=== PATIENT | female | born 1940 | race African-American/Black ===

== ENCOUNTER 2019-08-10 15:31 | Inpatient (IN) ==
--- NOTE | 2019-08-10 16:18 | EKG Report ---
Test Performed on : 08/10/2019 3:49:37 PM Test Reason : WEAKNESS Blood Pressure : / mmHG Vent. Rate : 053 BPM Atrial Rate : 053 BPM P-R Int : 192 ms QRS Dur : 074 ms QT Int : 414 ms P-R-T Axes : 059 -63 049 degrees QTc Int : 388 ms Sinus bradycardia. Left anterior fascicular block Anterior infarct (cited on or before 17-DEC-2010) Abnormal ECG When compared with ECG of 17-DEC-2010 15:09, Nonspecific T wave abnormality no longer evident in Inferior leads Unconfirmed Result
[2019-08-10 16:21] LABS: BASO# 0.01 X1000 (0.0-0.2); BASO% 0.2 % (0.0-0.8); EOS# 0.11 X1000 (0.0-0.7); EOS% 2.1 % (0.0-10.0); HEMATOCRIT 30.6 % (37.0-47.0); MCH 29.2 PG (27-31); MCHC 32.7 g/dL (33-37); MCV 89.5 FL (81-99); MONO# 0.25 X1000 (0.11-0.59); MONO% 4.8 % (1.7-9.3); MPV 10.1 FL (7.4-10.4); NEUT# 2.12 X1000 (1.4-6.5); NEUT% 40.9 % (42.2-75.2); PLT 213 X1000 (130-400); RBC 3.42 XMIL (4.2-5.4); RDW 12.4 % (11.5-14.5); WBC 5.19 X1000 (4.8-10.8)
[2019-08-10 16:49] LABS: ALB/GLOB RATIO 1.5; ALBUMIN 4.2 g/dL (3.5-5.0); CALCIUM 9.3 mg/dL (8.8-10.2); CREATININE 3.4 mg/dL (0.5-0.9); POTASSIUM 3.6 mmol/L (3.5-5.1); TOTAL BILIRUBIN 0.34 mg/dL (0.20-1.00)
--- NOTE | 2019-08-10 16:59 | Diag Imaging Result Doc PS360 ---
CHEST-PORTABLE - 08/10/2019 INDICATION: Weakness COMPARISON: 12/17/2010 FINDINGS: Stable mild cardiomegaly. Pulmonary vascularity is normal. No infiltrates or edema. No pneumothorax or pleural effusion. IMPRESSION: Mild cardiomegaly. Electronically signed by Jose Hannon 08/10/2019 4:57 PM
--- NOTE | 2019-08-10 17:02 | Diag Imaging Result Doc PS360 ---
CT HEAD W/O CONTRAST - 08/10/2019 INDICATION: Head injury COMPARISON: 12/17/2010 FINDINGS: Stable area of encephalomalacia at the anterior left frontal lobe. Stable area of old encephalomalacia at the posterior right occipital lobe. There is some new indeterminate subcortical cerebral white matter hypodensity bilaterally. This is mainly in the parietal lobes, left greater than right. No mass effect. No intracranial hemorrhage. Stable prosthetic device around the right eye. The skull is intact. The sinuses are clear. IMPRESSION: Worsening cerebral white matter hypodensity superiorly, with some asymmetry. The reason is uncertain. Recommend a follow-up brain MRI without and with intravenous contrast. No intracranial hemorrhage. This exam was performed using automated exposure control, adjustment of mA or kV according to patient size, and/or use of iterative reconstruction technique Electronically signed by Jose Hannon 08/10/2019 5:00 PM
[2019-08-10 17:06] LABS: ALLEN TEST YES; BE -2.4 mmoll (-3.0-3.0); BLOOD TYPE ARTERIAL; METHB 1.2 % (0.0-1.5); O2(CT) 13.3 mL/dL (15.0-23.0); O2HB 95.5 % (95.0-99.0); PCO2(98.6) 38 mmHg (35-45); PO2(98.6) 81 mmHg (60-100); SAMPLE BLOOD; SAO2 98.3 % (95.0-100.0); THB 9.8 g/dL (11.5-17.4); pH(98.6) 7.38 (7.35-7.45)
[2019-08-10 17:07] LABS: MODALITY ROOM AIR
[2019-08-10 17:58] LABS: URINE SOURCE CLEAN CATCH
[2019-08-10 18:10] LABS: BILIRUBIN URINE NEGATIVE (NEGATIVE); BLOOD URINE NEGATIVE (NEGATIVE); COLOR YELLOW; GLUCOSE URINE NEGATIVE (NEGATIVE); KETONE URINE NEGATIVE (NEGATIVE); LEUKOCYTES URINE NEGATIVE (NEGATIVE); NITRITE URINE NEGATIVE (NEGATIVE); PH URINE 5.5; PROTEIN URINE TRACE mg/dL (NEGATIVE); SP GRAVITY URINE 1.013; TURBIDITY URINE CLEAR (CLEAR); UROBILINOGEN URINE NORMAL (NORMAL)
[2019-08-10 18:13] LABS: UR EPITHELIAL CELLS <10 /HPF (<10); URINE BACTERIA NEGATIVE /HPF; URINE RBC <10 /HPF (<10); URINE WBC <10 /HPF (<10)
[2019-08-10 18:13] LABS: INR 1.05; PROTIME 13.8 Seconds (11.0-16.0)
[2019-08-10 18:14] LABS: UR AMPHETAMINES QUAL NONE DETECTED (NONE DETECT); UR BARBITUATES QUAL NONE DETECTED (NONE DETECT); UR BENZODIAZEPIN QUAL NONE DETECTED (NONE DETECT); UR CANNABINOIDS QUAL NONE DETECTED (NONE DETECT); UR COCAINE QUAL NONE DETECTED (NONE DETECT); UR METHADONE QUAL NONE DETECTED (NONE DETECT); UR OPIATES QUAL NONE DETECTED (NONE DETECT); UR OXYCODONE QUAL NONE DETECTED (NONE DETECT); UR PCP QUAL NONE DETECTED (NONE DETECT)
[2019-08-10 18:14] LABS: PTT 27.2 Seconds (22.3-41.8)
--- NOTE | 2019-08-10 18:44 | PROVIDER DOCUMENTATION ---
This chart was entered by Marlena Sandoval Scribe, acting as scribe for Jim Goddard MD. HPI-General Adult - General Chief Complaint: Weakness Stated Complaint: WEAKNESS Time Seen by Provider: 08/10/19 16:05 Source: patient Allergies/Adverse Reactions: Patient Allergies Allergy/AdvReac Type Severity Reaction Status Date / Time No Known Allergies Allergy Verified 08/10/19 17:38 Home Medications: Home Medication List Medication Instructions Recorded Confirmed Last Taken Type Bimatoprost [Lumigan] 1 drop BOTH EYES DAILY 03/26/17 08/10/19 08/10/19 History Bisoprolol/Hydrochlorothiazide 1 each PO DAILY 03/26/17 08/10/19 Unknown History [Ziac 5-6.25 mg Tablet] Iron Fum & Ps Cmp/Vit C & B 1 each PO DAILY 03/26/17 08/10/19 Unknown History [Integra Capsule] Levetiracetam [Keppra] 500 mg PO BID 03/26/17 08/10/19 08/10/19 History SIMVAstatin [Zocor] 20 mg PO QHS 03/26/17 08/10/19 Unknown History - History of Present Illness -Gen Adult Nature of Presenting Problems: Patient is a 79 y/o female presenting to the ED today c/o weakness. Patient reports onset of symptoms over the last week. Patient reports she has also had intermittent left sided low back pain but it has resolved at this time. Patient reports she is scheduled to see nephrology tomorrow. Patient's family states that she has not been taking her antiepileptic medications as prescribed and they noticed some behavioral and speech changes when they realized she was no longer compliant. Patient reports she has had significant weight loss over the last year with no intention. Patient denies fever, chest pain, abdominal pain, vision changes, and headache. Patient reports she has cataracts as well as decr eased pupil function in her right eye. Patient reports history of bradycardia and CVA. Denies all other signs/symptoms. Location of Pain/Injury: reports: back (low back) Pain Radiation: reports: no radiation Onset/Duration: reports: 1 week ago Timing: reports: intermittent Associated Symptoms: reports: weakness Similar Symptoms Previously?: No Recently seen or treated by another doctor?: No Review of Systems - Adult - REVIEW OF SYSTEMS - ADULT Constitutional: reports: weight loss. denies: chills, fever Eyes: reports: no symptoms reported Ears, Nose, Mouth & Throat: reports: no symptoms reported Cardiovascular: reports: other (bradycardia). denies: chest pain Respiratory: denies: cough, shortness of breath Gastrointestinal: denies: abdominal pain Genitourinary: denies: dysuria Musculoskeletal: reports: no symptoms reported Integumentary: reports: no symptoms reported Neurological: reports: other (generalized weakness) Psychiatric: reports: no symptoms reported Endocrine: reports: no symptoms reported Hematologic/Lymphatic: reports: no symptoms reported Allergic/Immunologic: reports: no symptoms reported Past History - Adult - PAST MEDICAL HISTORY-ADULT Review of Records: reports: Old Records Reviewed, Nursing Assessment Review, Medications Reviewed, Social history reviewed & non-contributory. Major Childhood Illnesses: reports: denies history Cardiovascular: reports: CO, other (bradycardia) Respiratory: reports: denies history Gastrointestinal: reports: denies history Obstetrical/Gynecological: reports: denies history Genitourinary: reports: denies history Musculoskeletal: reports: denies history Neurological: reports: CVA Endocrine/Immune: reports: denies history Other Conditions: reports: cataract/glaucoma Physical Exam-General - PHYSICAL EXAM-ADULT Initial Vital Signs Reviewed: Yes - CONSTITUTIONAL General Appearance: alert, no apparent distress - EYES Eyes: other (no pupil response on right- patient reports baseline, cataracts noted). negative: conjuctival exudate, sclera injected, scleral icterus, subconjunctival hemorrhage - HEAD, EARS, NOSE, MOUTH & THROAT HENMT: moist mucous membranes, normal ENT inspection, pharynx normal - NECK Neck: supple - RESPIRATORY Respiratory: lungs clear, normal breath sounds, no respiratory distress, no accessory muscle use - CARDIOVASCULAR Cardiovascular: no edema, no gallop, no murmur, bradycardia - GASTROINTESTINAL (ABDOMEN) Abdominal Exam: non tender, soft - MUSCULOSKELETAL Extremity: normal range of motion, normal inspection, other (strength 5/5 in the right upper extremity and 4/5 in the right upper extremity, LE 4/5 in the LLE vs 5/5 in the RLE.) - SKIN Integumentary: normal color, warm/dry - NEUROLOGIC Neurologic: grossly normal - PSYCHIATRIC Psych/Mental Status: normal mood/affect, normal thought content, normal thought process Progress - PLAN OF CARE/RESULTS Progress/Plan/Lab Results: Vital Signs - 8 hr 08/10/19 15:38 Temperature 97.7 F Pulse Rate 54 L Respiratory Rate 18 Blood Pressure 136/81 O2 Sat by Pulse Oximetry 99 Laboratory Results - last 24 hr 08/10/19 16:01 POC Glucose 82 Orders Category Date Time Status CBC WITH ELECTRONIC DIFF [HEME] Stat Lab 08/10/19 16:06 Ordered COMPREHENSIVE METABOLIC PANEL [CHEM] Stat Lab 08/10/19 16:06 Ordered Generalized Adult Illness >60 Stat Oth 08/10/19 15:44 Ordered EKG [EKG] Stat Ther 08/10/19 15:44 Ordered Result Diagrams: 08/10/19 16:01 08/10/19 16:01 - REASSESSMENT Reassessment #1 Status: other (Given reported progressive weakness and new Head CT findings recomending MRI will plan for admission inpt. Discussed with the hospitalist team who have accepted the patient.) - EKG 1 Time of EKG reading by physician:: 15:49 EKG Read and Signed by:: Jim Goddard EKG Interpretation (*Must complete 3 of following elements*): Abnormal Rate: 53 Rhythm: Sinus bradycardia with 1st degree AV block [place]: left Comments: No STEMI Departure - Departure Date of Disposition Decision: 08/10/19 Time of Disposition Decision: 18:28 DIAGNOSIS: Weakness, Bradycardia, Abnormal CT of the head Disposition: ADMITTED INPATIENT 09 Certified Medical Emergency: Emergent Condition: Fair Referrals and Follow-Ups: Lawrence Lizarraga MD [Primary Care Provider] - - Critical Care Note This patient required my direct & personal management of CC.: No Attestation - Physician/ ANNIE Attestation Patient care was provided by Advanced Practice Provider:: No The physician spent face to face time with patient:: Yes Advanced Practice Provider documentation review:: Supervising physician onsite and consulted in the evaluation and care of this patient. The physician did have a face to face encounter with the patient. This chart was documented by the indicated scribe, (Marlena Sandoval Scribe) and accurately reflects the services I performed and decisions made by Nitza soares Joshua T., MD, as attested by the provider's signature.
--- NOTE | 2019-08-10 20:38 | Diag Imaging Result Doc PS360 ---
US RENAL 2 (RETROPER) COMPLETE - 08/10/2019 INDICATION: Elevated CR TECHNIQUE: COMPARISON: CT abdomen pelvis 03/08/2017 FINDINGS: There are several bilateral renal cysts. These measure up to 3 cm on the right and 6 cm on the left. The right kidney measures 10.4 x 7.1 x 4. Centimeter / The left kidney measures 14.4 x 5.6 x 6.2 cm. The urinary bladder is collapsed. IMPRESSION: Several large bilateral renal cysts. No evidence of hydronephrosis. Electronically signed by Jose Hannon 08/10/2019 8:36 PM
--- NOTE | 2019-08-10 22:32 | HISTORY AND PHYSICAL ---
PRIMARY CARE PHYSICIAN: Dr. Lawrence Lizarraga. CHIEF COMPLAINT: Weakness. HISTORY OF PRESENTING ILLNESS: A 79-year-old elderly female with a history of hypertension, gout, CVA and seizures who had presented to the emergency department with several days history of having weakness. She states that she just did not feel well. Patient is a poor historian. Most of the history is obtained from her family members. However at time my examination, she had denied any headache, fever, chills, chest pain, shortness of breath but claims that she is just weak. The patient apparently had a CT scan in the ED which was also abnormal with recommendation for MRI. However, due to her renal failure we will probably need to hold off on it for now. PAST MEDICAL HISTORY: Includes hypertension, gout, CVA, seizure disorder. PAST SURGICAL HISTORY: Right eye surgery, cataract surgery bilaterally, hysterectomy. ALLERGIES: No known drug allergies. CURRENT MEDICATIONS: She does not recall and nursing staff will reconcile. SOCIAL HISTORY: No history of smoking, alcohol or illicit drug use. FAMILY HISTORY: Positive for coronary disease father. REVIEW OF SYSTEMS: Fourteen point review of system as listed in HPI. Other systems negative. PHYSICAL EXAMINATION: GENERAL: Cooperative, friendly female. She is resting comfortably now. VITAL SIGNS: Temperature 97.7 degrees, pulse 54, respiration 18, blood pressure 136/81. HEENT: Atraumatic, normocephalic. PERRLA. NECK: No masses. CHEST: Clear to auscultation. CARDIOVASCULAR: Regular rate and rhythm. ABDOMEN: Soft. Positive bowel sounds. EXTREMITIES: No edema. NEUROLOGIC: She is awake, alert, oriented x2. : No bladder distention. SKIN: Warm. LABORATORIES AND STUDIES: WBC 5.19, hemoglobin 10.1, hematocrit 30.6, platelets 213,000. Sodium 140, potassium 3.6, chloride 103, CO2 is 21, BUN is 60, creatinine 3.4, glucose is 89. UA, leukocytes are negative, nitrite is negative. CT of the head shows worsening cerebral white matter hypodensities with recommendations for brain MRI. ASSESSMENT: This is a 79-year-old female with a history of hypertension, gout, cerebrovascular accident and seizure disorder who had presented to the emergency department with complaint of weakness. She was evaluated in the emergency department. She had imaging done which did show abnormal CAT scan. Due to her presenting symptoms, she will require admission for further management. 1. Generalized weakness. 2. Abnormal CAT scan of the head. 3. Seizure disorder. 4. Hypertension. 5. Acute on chronic kidney disease. PLAN: 1. We will admit patient to medical floor with telemetry. 2. We will consult Neurology for further evaluation of weakness and abnormal CT of the head. 3. We will put patient on seizure precautions. Start her antiepileptic agents. 4. We will continue to monitor renal function closely. 5. Monitor blood pressure. Resume antihypertensive agent. 6. We will put patient on DVT prophylaxis with SCDs. 7. We will continue to follow and reassess. Make further recommendation based on patient's clinical course. cc: Efra Mackenzie MD
[2019-08-10] MEDS ORDERED: ZOFRAN IV PRN (22:43)
[2019-08-11 08:39] LABS: BASO# 0.01 X1000 (0.0-0.2); BASO% 0.2 % (0.0-0.8); EOS# 0.12 X1000 (0.0-0.7); EOS% 2.6 % (0.0-10.0); HEMATOCRIT 29.1 % (37.0-47.0); HEMOGLOBIN 9.9 g/dL (12.0-16.0); LYMPH# 2.43 X1000 (1.2-3.4); LYMPH% 53.1 % (20.5-51.1); MCH 30.3 PG (27-31); MONO# 0.27 X1000 (0.11-0.59); MONO% 5.9 % (1.7-9.3); MPV 10.1 FL (7.4-10.4); NEUT# 1.75 X1000 (1.4-6.5); NEUT% 38.2 % (42.2-75.2); PLT 204 X1000 (130-400); RBC 3.27 XMIL (4.2-5.4); RDW 12.3 % (11.5-14.5); WBC 4.58 X1000 (4.8-10.8)
[2019-08-11 09:14] LABS: CALCIUM 9.3 mg/dL (8.8-10.2); CREATININE 2.7 mg/dL (0.5-0.9); POTASSIUM 3.7 mmol/L (3.5-5.1)
[2019-08-11] MEDS: FISH OIL CONCENTRATE PO SCH (10:02)
[2019-08-11] MEDS: ZYLOPRIM PO SCH (10:02)
[2019-08-11] MEDS: KEPPRA PO SCH ×2 (10:02→20:44)
[2019-08-11] MEDS: ASPIRIN EC PO SCH (10:02)
[2019-08-11] MEDS: TIMOPTIC 0.25% OPH SOLUTION BOTH EYES SCH ×2 (10:03→20:44)
[2019-08-11] MEDS: PATIENT'S OWN MED PO SCH (10:11)
[2019-08-11] MEDS: LUMIGAN 0.01% OPH SOLUTION BOTH EYES SCH ×2 (10:12→20:45)
[2019-08-11] MEDS: NS 1,000 ML IV SCH ×2 (14:10)
--- NOTE | 2019-08-11 14:20 | PROGRESS NOTE ---
DATE: 08/11/2019 SUBJECTIVE: Patient admitted on 08/10/2019, admitted yesterday. Her doctor is Dr. Lawrence Lizarraga. She has also been seen by Dr. Cardona. This is a 79-year-old female with history of hypertension, gout, CVA, and history of seizures, who presented to the emergency department with several-day history of having weakness, and did not feel well. Apparently, she was having trouble slow in speech and there seemed to be some questionable confusion. Most of the history was obtained from family members. At the time I examined her in the emergency room, the patient had a CT scan in the emergency room without contrast, and was unremarkable. I think they are planning on an MRI, which I think they have obtained already. PAST MEDICAL HISTORY: Hypertension, gout, CVA and seizure disorder. She says she feels better. Her daughter was at the bedside. Her speech was fluent. She is oriented x3. She remains afebrile. Temperature 98 degrees, pulse 42, and respirations 19. A note that the pulse varied from 42 to 90, blood pressure 161 over 59. Pupils are equal. CVP less than 6 cm. Lungs are clear in all lung mckay. Cardiovascular exam regular rhythm and rate without murmur or S3. Abdomen is soft. Skin is warm and dry. LABORATORY DATA: Reviewed from yesterday, white count was 4580, hematocrit 29, and platelet count is 204,000. Sodium 141, potassium 3.7, chloride 104, BUN 52, and creatinine 2.7 which has come down from 3.[address] of the head without contrast with worsening cerebral white matter hypodensity superiorly and some asymmetry. Reason is uncertain, so I believe MRI is planned to see where she had a myocardial perfusion scan back in 2016. It was it was normal and negative. ASSESSMENT AND PLAN: 1. Generalized weakness. I think it is multifactorial. 2. I think a CT scan was nonspecific. I think they are wanting to get an MRI. 3. History of seizure disorder. 4. Hypertension. 5. Chronic kidney disease with acute kidney injury on top of chronic kidney disease. This may have just been a prerenal. 6. Reviewing her orders: She is getting Zocor 20 mg a day, allopurinol 300 mg every morning, aspirin 81 mg a day, Keppra 500 mg p.o. b.i.d. She is getting normal saline at 80 mL an hour. Her electrolytes are pretty unremarkable so this may have been just symptomatic azotemia, and seems to be responding to fluids. Continue normal saline at present rate. 7. History of seizures. Aware. Continue Keppra. 8. History of gout. She is on allopurinol. 9. History of hypercholesterolemia. She is on Zocor. 10. Physical Therapy has been consulted. cc: Kiet Navas MD
[2019-08-11] MEDS: ZOCOR PO SCH (20:44)
--- NOTE | 2019-08-12 07:42 | CONSULTATION ---
DATE OF CONSULTATION: 08/11/2019 REASON FOR CONSULT: Altered mental status and weakness. HISTORY OF PRESENT ILLNESS: This is a 79-year-old, right-handed, black female with a history of seizure disorder, stroke, and hypertension who was brought into the emergency department with about 1 week of generalized weakness and some confusion. History is from the patient and her daughter. The patient just did not feel quite like herself over the last week. She did not feel well. Family felt there was just a gradual slow onset of confusion and generalized weakness. There was not focal feature. There was not witnessed seizure or loss of consciousness. No headache, fever, chills, chest pain, shortness of breath. No recent illnesses. The patient reports taking her medications as prescribed. Her daughter says that she needs to use a pill box but that she does not. The patient does not receive help with her medications. Daughter suspects that she may not always take her seizure medication, though she is not sure. Head CT showed worsening white matter hypodensity superiorly, mainly parietal lobes, left greater than right. PAST MEDICAL HISTORY: Hypertension, remote stroke, seizure disorder, gout, right eye surgery, cataracts. FAMILY HISTORY: Positive for coronary disease. No seizures. SOCIAL HISTORY: No smoking, tobacco, or alcohol. She had been driving until very recently. ALLERGIES: No known drug allergies listed. CURRENT MEDICATIONS: Reviewed in the chart, include aspirin 81 mg daily and Keppra 500 mg b.i.d. REVIEW OF SYSTEMS: Balance of 12 conducted and is otherwise negative except that detailed in the HPI. She apparently had reported some weight loss. PHYSICAL EXAMINATION: Vital Signs: She has been afebrile, blood pressure 159/62, pulse anywhere from the 30s to 90s, respirations 19, 100% on room air. Ms. Esquivel is standing in the bathroom with her daughter when I enter the room. She walks slowly but unassisted in the bedroom and sits down on the bed. She is awake, alert, and reasonably oriented. At times, she makes comments that it seems the daughter felt were confused statements. She followed simple and complex commands for me but she says that she follows simple commands consistently. Left and right digit distinction preserved. General dysarthria. No language disturbance on brief bedside testing. Pupils are equal and round, and subtly reactive to bright light. Gaze conjugate. Ocular movements are full. She can hear. Visual mckay appear intact to direct confrontational testing. Face asymmetric with equal activation. Facial sensation reported intact. Tongue is midline. Palate elevates symmetrically. Shoulder shrug is full. Power testing in the limbs was difficult. I did not see obvious definite focal finding, however. She reported symmetric sensation in the limbs bilaterally. Reflexes were absent at the ankles, 1+ at the biceps bilaterally. No clonus. Plantar response was downgoing. [id number] was intact but slowed bilaterally. Rapid alternating movements appeared slowed bilaterally. DIAGNOSTICS: Head CT: Worsening cerebral white matter hypodensity superiorly, mainly in the parietal lobes, left greater than right and without mass-effect. Recommended a followup study with an MRI. There was not intracranial hemorrhage. There was a stable area of encephalomalacia in the anterior left frontal lobe and also in the posterior right occipital lobe. LABS: Reviewed in the chart. BUN 60, now 52; creatinine 3.4, now 2.7. These values had been elevated in 2017 as well. The blood glucose was 50 overnight, in the 80s on admission. Urinalysis and toxicology negative. ASSESSMENT AND PLAN: A 79-year-old female with a history of seizures, stroke, and hypertension admitted with gradual onset of altered mental status and generalized weakness. Neurologic exam today was nonfocal. Head CT, however, revealed new indeterminate subcortical cerebral white matter hypodensity as detailed above. This is of uncertain etiology and is new, at least since the comparison which was performed in 2010. Etiology of her symptoms is uncertain, but they believe that there has been improvement compared to admission, which is reassuring. It may be on the basis of her renal function. It may be multifactorial. Seizures or stroke are also a possibility. A Keppra level has been sent. I will order a routine EEG. I will also order an MRI of the brain, noncontrast given her kidney disease, and see if we can get a better look at the area of concern on CT. Please limit sedating medications as able. Thank you for the consultation. cc: MD MAXX Hastings
--- NOTE | 2019-08-12 09:33 | Diag Imaging Result Doc PS360 ---
EXAM: MRI BRAIN W/O CONTRAST 08/11/2019 HISTORY: abnormal CT TECHNIQUE: T1 sagittal and axial, axial T2, FLAIR, DWI and coronal gradient echo. COMMENT: There are some apparent encephalomalacic changes in the inferior right cerebellar hemisphere as well as in the right occipital lobe, the left posterior temporal parietal lobe and in the frontoparietal region on the left. There is increased T1 weighted signal intensity in the cortex in the posterior left hemisphere consistent with laminar necrosis. In addition there is increased T2-weighted signal intensity in the periventricular white matter bilaterally and particularly in the subcortical white matter of the anterior and posterior left hemisphere and in a patchy distribution in the subcortical white matter of the right hemisphere. There is some slightly increased signal intensity on the diffusion-weighted images in the posterior left hemisphere, which may be indicative of T2 shine through rather than restricted diffusion, and there is there is a small nodular focus of decreased signal intensity on the gradient echo images in the posterior left parietal subcortical white matter. There is decreased signal intensity on the [place] sequence indicating petechial hemorrhage in the posterior left cortex. There are some less dramatic low signal intensity areas on the [place] series in the frontoparietal region on the left. IMPRESSION: Extensive chronic ischemic changes with encephalomalacia in the anterior left hemisphere and occipital lobe on the right. Findings in the temporoparietal region posteriorly in the left hemisphere are probably related to a relatively subacute infarction with laminar necrosis and petechial hemorrhage. Electronically signed by Simeon Delacruz 08/12/2019 9:31 AM
[2019-08-12] MEDS: ASPIRIN EC PO SCH (10:30)
[2019-08-12] MEDS: KEPPRA PO SCH ×2 (10:30→22:47)
[2019-08-12] MEDS: FISH OIL CONCENTRATE PO SCH (10:30)
[2019-08-12] MEDS: ZYLOPRIM PO SCH (10:30)
[2019-08-12] MEDS: TIMOPTIC 0.25% OPH SOLUTION BOTH EYES SCH ×2 (10:31→22:47)
[2019-08-12] MEDS: PATIENT'S OWN MED PO SCH (10:31)
--- NOTE | 2019-08-12 13:23 | PROGRESS NOTE ---
DATE: 08/12/2019 SUBJECTIVE: Ms. Esquivel has baseline dementia and presented with confusion. There is remote history of seizure. There was not clear history of recent seizure. MRI completed recently shows evidence of old and more recent infarction, but nothing definitely acute. She did not have any definite focal neurologic feature with her current presentation. Dr. Song saw her for Neurology evaluation yesterday. OBJECTIVE: On exam today, she is awake, alert, attentive. Family reports she is much brighter today and may be close to her baseline cognitively and mentally. EEG today shows mostly generalized slowing indicative of global encephalopathy and consistent with her baseline cognitive impairment syndrome. There is minimal increased left frontal slowing which may correlate with recent infarction. There is no evidence of seizure. I do not have any new suggestions from Neurology standpoint today. If she has fluctuating level of consciousness or questionable other question of seizure, we might repeat the EEG. Thanks for asking us to see Ms. Esquivel. cc: MD MAXX Myers III
--- NOTE | 2019-08-12 15:44 | PROGRESS NOTE ---
DATE: 08/12/2019 SUBJECTIVE: Ms. Esquivel slept a little bit toward the end of the night. She seems to be less restless. She is still very anxious. OBJECTIVE: Vital Signs: Temperature 98.1 degrees, pulse 44, respirations 16, blood pressure 170/72. HEENT: Pupils are equal and round. Lungs: Clear in all lung mckay. Cardiovascular: Regular rhythm and rate without murmur or S3. Input and Output: Urine output is 1400 mL. LABORATORY DATA: From this morning, sodium 141, potassium 3.7, chloride 104, BUN 52, creatinine 2.7. ASSESSMENT: 1. EEG shows mostly generalized slowing indicating global encephalopathy consistent with baseline cognitive impairment syndrome. Minimal increase left frontal slowing which may correlate with recent infarction. She had presented with confusion, remote history of seizure. It is not clear whether she has a recent history of seizure. MRI shows completed recently showed evidence of old more recent infarction, but nothing definitely acute. She did not have any definite focal neurologic features on presentation. 2. Hypertension. Blood pressure appears fairly well controlled. 3. Generalized weakness. 4. She has some underlying dementia and does have a good amount of anxiety. PLAN: She is on Zocor 20 mg a day, allopurinol 300 mg q.a.m., aspirin 81 mg a day, Keppra 500 mg b.i.d., and she does appear more alert and awake and will continue the physical therapy. I think she would like to go home with home health so we will continue that and I do not see any change in her medications at this time. cc: Kiet Navas MD
--- NOTE | 2019-08-12 19:33 | EEG REPORT ---
DATE: 08/11/2019 COMMENT: This is a digitally recorded EEG on a 79-year-old patient with baseline cognitive impairment, recent increased confusion, reported remote history of seizure. FINDINGS: During waking, polymorphic and rhythmic theta at low to medium amplitude are present symmetrically across the hemispheres. There is occasional slowing into the delta range at higher amplitude in the left frontal region than on the right. Posterior dominant rhythm was not identified. There is some muscle contraction over the right hemisphere more than the left, which did not hinder interpretation. Photic stimulation did not significantly alter the record. Drowsing occurred briefly with appearance of more generalized slowing. Stage II sleep was not recorded. No definite epileptiform discharge was identified. INTERPRETATION: Abnormal EEG because of mostly generalized slowing. At times, there is slightly more prominent slowing in the left hemisphere anteriorly. CORRELATION: This is indicative of mostly diffuse encephalopathy and is nonspecific. The asymmetry is consistent with focal disturbance of electrocortical activity in the left hemisphere and may correlate with MRI findings of infarction in that area. The absence of epileptiform discharges does not exclude a clinical diagnosis of seizure, but there is nothing on this record to indicate recent seizure. cc: MD Alexa Myers III, MD [facility]EREugenie
[2019-08-12] MEDS: ZOCOR PO SCH (22:46)
[2019-08-12] MEDS: LUMIGAN 0.01% OPH SOLUTION BOTH EYES SCH (22:47)
--- NOTE | 2019-08-13 09:24 | PROGRESS NOTE ---
DATE: 08/13/2019 SUBJECTIVE: Ms. Esquivel said she is feeling much better, wanted to eat some breakfast, and had a good night, and she is stronger, and would like to go home today. She would like to get home health to help her. OBJECTIVE: Vital Signs: Temp 98.3 degrees, pulse 49, respirations 19, blood pressure 130/71. HEENT: Pupils are equal and round. Lungs: Clear in all lung mckay. Cardiovascular: Regular rhythm and rate without murmur or S3. Abdomen: Soft. Skin: Warm and dry. Urine output is 950 mL. ASSESSMENT AND PLAN: 1. Electroencephalogram was unremarkable. No sign of seizures while she has been here in the hospital. She is feels stronger. No new focal changes in her exam. She would like to go home with home health. 2. Hypertension. Blood pressure looks good. 3. History of generalized weakness and deconditioning. That is improving. 4. Some underlying dementia, which seems to be mild, so will see if we can get her home today. cc: Kiet Navas MD
[2019-08-13] MEDS: FISH OIL CONCENTRATE PO SCH (09:28)
[2019-08-13] MEDS: ASPIRIN EC PO SCH (09:28)
[2019-08-13] MEDS: TIMOPTIC 0.25% OPH SOLUTION BOTH EYES SCH (09:29)
[2019-08-13] MEDS: KEPPRA PO SCH (09:29)
[2019-08-13] MEDS: ZYLOPRIM PO SCH (09:30)
--- NOTE | 2019-08-13 13:33 | PROGRESS NOTE ---
DATE: 08/13/2019 Ms. Esquivel has not had any setback over the last 24 hours. Daughter at the bedside reports continued stable course. She does not report headache or anything else specific to me. On exam, she is propped up in bed, awake, alert, attentive. I observed her having cheerful conversation with family. We discussed her EEG report. I do not have anything new to suggest from Neurology standpoint. Thanks for asking us to see Ms. Esquivel. cc: MD MAXX Myers III
[2019-08-13 15:06] VITALS: BP 132/73
[2019-08-13] MEDS: PATIENT'S OWN MED PO SCH (16:53)
--- NOTE | 2019-08-13 16:59 | DISCHARGE SUMMARY ---
ADMISSION DATE: 08/10/2019 DISCHARGE DATE: 08/13/2019 PROVIDER: Her doctor is Dr. Lawrence Lizarraga. HISTORY: This is a 79-year-old elderly female with history of hypertension, gout, CVA, seizures, who presented to the emergency room after a several-day history of having some weakness. She said she did not feel well. The patient is a poor historian. Most of history is obtained from family members. However, at the time of examination, she had denied any headache, fever, chills, chest pain, shortness of breath, but claims she just feels weak. The patient had a CT of the head without contrast and they recommended an MRI. Past medical history - again, hypertension, gout, CVA, seizure disorder, so admitted with just generalized weakness, abnormal CT head scan of the head, history of seizure disorder, and hypertension. IMAGING: CT of the head read a worsening cerebral white matter hypodense superior and some asymmetry. So, MRI of the head obtained on 08/11/2019 showed extensive chronic ischemic changes, encephalomalacia in the anterior left hemisphere and occipital lobe on the right. Findings in the temporal parietal region, posterior in the left hemisphere, probably subacute. HOSPITAL COURSE: The patient seemed to improve as far as strength. Neurology was consulted and felt she had worsening cerebral white matter hypodensity superior mainly in the parietal lobes, left greater than the right, without mass effect. We ordered an EEG and it was pretty nonspecific. She was eating and seemed to tolerate that well. EEG read by Dr. Mehta showed abnormal EEG because of mostly general slowing at times. There is slightly more prominent slowing in the left hemisphere and indicates mostly diffuse encephalopathy, nonspecific asymmetry consistent with focal distribution of electrocortical activity in the left hemisphere, may correlate with MRI findings. Family wanted to go home and have home health. She had physical therapy, which she tolerated well here. Blood pressures appear well controlled. MEDICATIONS: We will continue her on iron, vitamin C and B tablet, Zyloprim 300 mg q. a.m., aspirin 81 mg a day, Lumigan 0.01% eyedrops to both eyes as she has been doing before, Keppra 500 mg p.o. b.i.d., fish oil concentrate 1000 mg a day, and Zocor 20 mg a day. She also is on Timoptic 0.25% both eyes b.i.d. Will get home health set up for her. cc: Kiet Navas MD
== END 2019-08-13 18:34 | disposition home health service (06) | DRG 948 ==
LOC: 3N 15:31 → ED 15:31 → OBSVTOIN 21:59 → SUATTDRO 21:59
PROVIDERS: ATTEND Emergency Medicine